=== PATIENT | male | born 1970 | race Hispanic/Latino ===

== ENCOUNTER 2022-05-11 12:15 | Emergency (ER) | payer SELFPAY ==
[~2022-05-11] VITALS: Ht 170.2 cm; Wt 122.5 kg
[~2022-05-11 12:15] MED LIST: ASPIRIN EC81 MG PO; ATIVAN1 MG PO; CETIRIZINE HCL10 MG PO; FLOMAX0.4 MG PO; LACTULOSE20 GM/30 M PO; OMEGA 3 1,0001 EACH PO; OMEPRAZOLE40 MG PO; flonase
[2022-05-11 13:08] LABS: BASOPHILS # (AUTO) 0.1 (0.0-0.1); BASOPHILS % 0.6 % (0.0-1.0); EOSINOPHILS # (AUTO) 0.1 (0.0-0.4); EOSINOPHILS % 0.7 % (0.0-6.0); HEMATOCRIT 47.5 % (38.2-49.6); HEMOGLOBIN 16.1 g/dL (14.0-18.0); LYMPHOCYTES # (AUTO) 2.6 (1.0-3.2); LYMPHOCYTES % 30.1 % (18.0-39.1); MEAN CORPUSCULAR HEMOGLOBIN 30.8 pg (28-32); MEAN CORPUSCULAR HGB CONC 33.9 g/dL (31-35); MEAN CORPUSCULAR VOLUME 90.8 fL (81-99); NEUTROPHILS # (AUTO) 4.8 (2.1-6.9); NEUTROPHILS % 55.9 % (38.7-80.0); PLATELET COUNT 239 x10e3/uL (140-360); RED BLOOD COUNT 5.23 x10e6/uL (4.3-5.7); RED CELL DISTRIBUTION WIDTH 12.9 % (11.7-14.4)
[2022-05-11 13:36] LABS: ALANINE AMINOTRANSFERASE 32 IU/L (0-55); ALBUMIN 4.3 g/dL (3.5-5.0); ALBUMIN/GLOBULIN RATIO 1.2 (0.8-2.0); ALKALINE PHOSPHATASE 62 IU/L (40-150); ANION GAP 13.7 mmol/L (8-16); BLOOD UREA NITROGEN 16 mg/dL (7-26); BUN/CREATININE RATIO 18 (6-25); CARBON DIOXIDE 24 mmol/L (22-29); CHLORIDE 103 mmol/L (98-107); CREATINE KINASE 99 IU/L (30-200); CREATININE, SERUM 0.89 mg/dL (0.72-1.25); GLUCOSE 89 mg/dL (74-118); POTASSIUM 3.7 mmol/L (3.5-5.1); SODIUM 137 mmol/L (136-145)
== END 2022-05-11 16:00 | disposition home or self-care (01) ==
LOC: ER 12:23
DX: R53.83 Other fatigue (principal); I10 Essential (primary) hypertension; E78.5 Hyperlipidemia, unspecified; F41.9 Anxiety disorder, unspecified
CPT/HCPCS: 36415; 71046; 80053; 82550; 82553; 84484; 85025; 93005; 99283